=== PATIENT | female | born 1975 | race Caucasian/White ===

== ENCOUNTER 2017-07-09 06:04 | Day surgery (SDC) | payer OTHER ==
[2017-07-09] MEDS ORDERED: MIDAZOLAM 1 MG/ML 2 ML INJ ×3 (08:30→08:31)
[2017-07-09] MEDS ORDERED: FENTAnyl 50 MCG/ML VIAL (08:31)
== END 2017-07-09 11:05 | disposition home or self-care (01) ==
LOC: GIL 06:04
DX: R19.4 Change in bowel habit (principal); K29.70 Gastritis, unspecified, without bleeding
CPT/HCPCS: 43239; 84703; 87081